=== PATIENT | male | born 1935 | race Caucasian/White ===

== ENCOUNTER 2022-02-25 07:55 | Inpatient (IN) ==
[2022-02-25] MEDS ORDERED: methylPREDNISolone SOD SUCC 125 MG/2 ML VIAL IV ONE (08:15)
[2022-02-25] MEDS ORDERED: 0.9 % SODIUM CHLORIDE 500 ML IV ONE (08:15)
--- NOTE | 2022-02-25 08:15 | Emergency Department Note ---
SOB HPI General Chief Complaint: Shortness of Breath/Dyspnea Stated Complaint: Coughing Blood, Difficulty Breathing Time Seen by Provider: 02/25/22 08:04 Source: patient Mode of arrival: ambulatory Limitations: no limitations and other (Hard of hearing) History of Present Illness HPI Narrative: Narrative: 86-year-old male, ex-smoker quit more than 10 years ago, with past medical history of COPD, hypertension, coronary artery disease, atrial fibrillation on Coumadin and as below presents with cough shortness of breath and wheezes for 2 to 3 days associated with right pleuritic chest pain. No headache dizziness abdominal pain nausea vomiting diarrhea fever or chills. Patient did receive day his COVID booster shot on February 21, 2022. No exposure to COVID. EKG in the ER shows irregular rhythm at 77 bpm consistent with A. fib. Normal axis. No ST changes. Related Data Home Medications Medication Instructions Recorded Confirmed magnesium oxide 500 mg capsule 500 mg PO DAILY 12/27/15 02/25/22 multivitamin-ferrous 1 each PO DAILY 12/27/15 02/25/22 fumarate-folic acid 18 mg-400 mcg tablet vitamin E 670 mg (1,000 unit) 1,000 unit PO DAILY 12/27/15 02/25/22 capsule omega-3 fatty acids-vitamin E 1,000 cap PO BID 11/30/20 02/25/22 1,000 mg capsule potassium chloride 10 mEq 10 meq PO BID 03/14/21 02/25/22 tablet,extended release (Klor-Con) ascorbate calcium (vitamin C) 500 500 mg PO QAM 02/25/22 02/25/22 mg capsule cholecalciferol (vitamin D3) 100 100 mcg PO QAM 02/25/22 02/25/22 mcg (4,000 unit) capsule lactobacillus combination no.8 3 3 cell PO QHS 02/25/22 02/25/22 billion cell capsule nifedipine 60 mg tablet,extended 120 mg PO QHS 02/25/22 02/25/22 release 24 hr vitamin B complex 1 tab PO QHS 02/25/22 02/25/22 warfarin 5 mg tablet See Rx Instructions .Route .COMPLEX 02/25/22 02/25/22 Previous Rx's Medication Instructions Recorded warfarin 3 mg tablet See Rx Instructions .Route 07/28/21 .COMPLEX #330 tabs albuterol sulfate 90 mcg/actuation 2 puff inhalation QID #18 grams 09/18/21 aerosol inhaler (ProAir HFA) spironolactone 25 mg tablet 25 mg PO DAILY #90 tabs 11/21/21 atorvastatin 10 mg tablet 10 mg PO QDAY #90 tabs 12/04/21 hydrochlorothiazide 25 mg tablet 25 mg PO DAILY #90 tabs 01/29/22 levothyroxine 125 mcg tablet 125 mcg PO DAILY #90 tabs 01/29/22 losartan 100 mg tablet 100 mg PO QDAY #90 tabs 01/29/22 Allergies Allergy/AdvReac Type Severity Reaction Status Date / Time Penicillins Allergy Difficulty Verified 02/04/22 15:46 Breathing venom-honey bee Allergy Anaphylaxis Verified 02/04/22 15:46 [bee venom (honey bee)] Review of Systems ROS ROS Narrative: Narrative: All systems ED: reviewed and negative except as stated. Constitutional: Reports as per [facility] Narrative Patient History Narrative: Narrative: Medical/Surgical/Family History All Active Problems (Updated 02/25/22 @ 12:26 by Jake Hutson MD) CHF (congestive heart failure) (Acute) Essential (primary) hypertension (Acute) Food impaction of esophagus (Acute) Acute exacerbation of chronic obstructive pulmonary disease (Acute) Pneumonia (Acute) Urinary tract infection (Acute) Hypoxia (Acute) Hyperlipidemia (Chronic) Hypothyroidism (Chronic) Gastric polyp (Acute) Hypertension (Chronic) Atrial fibrillation (Chronic) Acute bronchitis (Acute) Medicare annual wellness visit, subsequent (Acute) Spasm of muscle of lower back (Acute) Ear lesion (Acute) History of cataract extraction (Chronic ~12/2011) History of cholecystectomy (Chronic) History of kidney surgery (Chronic) Hx of nasal polypectomy (Chronic) History of heart artery stent (Chronic) Hx of adenomatous colonic polyps (Chronic) Arthritis (Chronic) Tinea cruris (Chronic) GERD (gastroesophageal reflux disease) (Chronic) Dysphagia, unspecified (Chronic) Neoplasm of skin (Chronic) CAD (coronary artery disease) (Chronic) Chronic atrial fibrillation (Chronic) Mitral regurgitation (Chronic) Tricuspid regurgitation (Chronic) Anticoagulation therapy not indicated (Chronic) Lateral epicondylitis, left elbow (Chronic) Medical History (Updated 02/25/22 @ 12:26 by Jake Hutson MD) Anticoagulation therapy not indicated Arthritis Atrial fibrillation CAD (coronary artery disease) Chronic atrial fibrillation Dysphagia, unspecified GERD (gastroesophageal reflux disease) Hx of adenomatous colonic polyps Hyperlipidemia Hypertension Hypothyroidism Lateral epicondylitis, left elbow Mitral regurgitation Neoplasm of skin Tinea cruris Tricuspid regurgitation Surgical History History of cataract extraction (~12/2011) right eye History of cholecystectomy History of heart artery stent History of kidney surgery History of surgery Lesion removal LT forearm Dr. Rodney 08/2019 Hx of nasal polypectomy Family History Brother , Age 72 Cardiac Social History Smoking Status: Never smoker Alcohol Intake Frequency: 0-2 drinks per day Substance Use: does not use Exam Narrative Narrative: Narrative: General Limitations: no limitations and other (Hard of hearing) General appearance: Present alert and in no apparent distress Head Head: Present atraumatic and normocephalic Eye Eye: Present normal appearance Chest Chest: Present tenderness (Right lower chest) Respiratory Respiratory: Present wheezes (Bilaterally); Absent accessory muscle use Cardiovascular Cardiovascular: Present irregular rhythm Adbominal Abdominal: Present soft and normal bowel sounds; Absent tenderness or o rganomegaly Extremities Extremities: Absent pedal edema, cyanosis or clubbing Neurological Neurological: Present alert and oriented X3 Course Course Course Narrative: CBC, CMP, troponin, CRP, lactic acid, PT/INR, BNP, UA, portable chest x-ray were ordered. DuoNeb, Solu-Medrol 125 mg IV, normal saline 500 mL IV were given patient has a high WBC count 11.5 with left shift, CRP high 13.30, UA is consistent with high leukocyte esterase and WBC count of 12, chest x-ray shows right lower lung pneumonia. Patient is still hypoxic after the treatment. Patient will be admitted to [facility] Vital Signs Vital signs: Vital Signs Temperature 98.6 F 02/25/22 07:58 Pulse Rate 81 02/25/22 07:58 Respiratory Rate 20 02/25/22 07:58 Blood Pressure 113/56 02/25/22 07:58 Pulse Oximetry (%) 90 02/25/22 07:58 Oxygen Delivery Method 02/25/22 07:58 Temperature 98.2 F 02/25/22 15:16 Pulse Rate 66 02/25/22 14:33 Respiratory Rate 26 H 02/25/22 15:16 Blood Pressure 108/57 02/25/22 15:16 Pulse Oximetry (%) 93 02/25/22 15:16 Oxygen Delivery Method 02/25/22 15:16 Oxygen Flow Rate (L/min) 3 02/25/22 15:16 MDM MDM Narrative Medical decision making narrative: Narrative: Lab Data Result diagrams: 02/25/22 08:29 02/25/22 08:29 Labs: Lab Results 02/25/22 02/25/22 02/25/22 Range/Units 08:28 08:28 08:28 WBC (4.5-11.0) K/mcL RBC (4.63-6.08) M/mcL Hgb (13.7-17.5) g/dL Hct (40.1-51.0) % MCV (80.0-100.0) fL MCH (26.0-34.0) pg MCHC (31.0-36.0) g/dL RDW (11.5-14.5) % Plt Count (140-440) K/mcL MPV (8.8-12.5) fL Immature Gran % (Auto) (0.0-0.5) % Neut % (Auto) (38.0-78.0) % Lymph % (Auto) (15.5-49.0) % [place] % (Auto) (1.0-12.0) % Eos % (Auto) (0.0-7.0) % Baso % (Auto) (0.0-2.0) % Lymph # (Auto) (1.50-4.80) K/mcL [place] # (Auto) (0.10-0.90) K/mcL Eos # (Auto) (0.00-0.70) K/mcL Baso # (Auto) (0.00-0.30) K/mcL Immature Gran # (0.00-0.05) K/mcl Absolute Neutrophils (1.80-8.00) K/mcL PT (11.9-14.5) sec INR (0.9-1.1) VBG Lactic Acid 0.9 (0.5-2.0) mmol/L Sodium (133-145) mmol/L Potassium (3.3-5.1) mmol/L Chloride (96-108) mmol/L Carbon Dioxide (22-30) mmol/L Anion Gap (8.0-16.0) BUN (8-23) mg/dL Creatinine (0.7-1.2) mg/dL GFR Calculation Glucose (70-105) mg/dL Calcium (8.6-10.4) mg/dL Total Bilirubin (0.1-1.0) mg/dL AST (<40) U/L ALT (<40) U/L Alkaline Phosphatase (39-117) U/L C-Reactive Protein (0.03-0.80) mg/dL Total Protein (5.9-8.4) gm/dL Albumin (3.2-5.2) gm/dL Globulin (2.2-3.7) gm/dL Albumin/Globulin Ratio (1.0-2.3) Procalcitonin 0.11 H (<0.10) ng/mL Urine Color Urine Appearance (Clear) Urine pH (5.0-9.0) Ur Specific [place] (1.000-1.035) Urine Protein (Negative) mg/dL Urine Glucose (UA) (Negative) mg/dL Urine Ketones (Negative) mg/dL Urine Occult Blood (Negative) mg/dL Urine Nitrate (Negative) Urine Bilirubin (Negative) mg/dL Urine Urobilinogen mg/dL Ur Leukocyte Esterase (Negative) /uL Urine RBC (0-3) /hpf Urine WBC (0-4) /hpf Ur Squamous Epith Cells (0-4) /hpf Ur Transition Epith Cell (0-2) /hpf Urine Bacteria (0) /hpf Urine Mucus (None) /hpf Ur Culture Indicated? POC Troponin I < 0.02 (0.00-0.08) 02/25/22 02/25/22 02/25/22 Range/Units 08:29 08:29 08:29 WBC 11.5 H (4.5-11.0) K/mcL RBC 3.90 L (4.63-6.08) M/mcL Hgb 11.9 L (13.7-17.5) g/dL Hct 35.7 L (40.1-51.0) % MCV 91.5 (80.0-100.0) fL MCH 30.5 (26.0-34.0) pg MCHC 33.3 (31.0-36.0) g/dL RDW 12.7 (11.5-14.5) % Plt Count 108 L (140-440) K/mcL MPV 9.9 (8.8-12.5) fL Immature Gran % (Auto) 0.3 (0.0-0.5) % Neut % (Auto) 71.1 (38.0-78.0) % Lymph % (Auto) 19.5 (15.5-49.0) % [place] % (Auto) 8.5 (1.0-12.0) % Eos % (Auto) 0.4 (0.0-7.0) % Baso % (Auto) 0.2 (0.0-2.0) % Lymph # (Auto) 2.24 (1.50-4.80) K/mcL [place] # (Auto) 0.98 H (0.10-0.90) K/mcL Eos # (Auto) 0.05 (0.00-0.70) K/mcL Baso # (Auto) 0.02 (0.00-0.30) K/mcL Immature Gran # 0.04 (0.00-0.05) K/mcl Absolute Neutrophils 8.18 H (1.80-8.00) K/mcL PT 23.6 H (11.9-14.5) sec INR 2.0 H (0.9-1.1) VBG Lactic Acid (0.5-2.0) mmol/L Sodium 136 (133-145) mmol/L Potassium 3.7 (3.3-5.1) mmol/L Chloride 99 (96-108) mmol/L Carbon Dioxide 28 (22-30) mmol/L Anion Gap 9.0 (8.0-16.0) BUN 18 (8-23) mg/dL Creatinine 0.9 (0.7-1.2) mg/dL GFR Calculation 76 Glucose 156 H (70-105) mg/dL Calcium 8.5 L (8.6-10.4) mg/dL Total Bilirubin 0.8 (0.1-1.0) mg/dL AST 14 (<40) U/L ALT 8 (<40) U/L Alkaline Phosphatase 63 (39-117) U/L C-Reactive Protein 13.30 H (0.03-0.80) mg/dL Total Protein 6.5 (5.9-8.4) gm/dL Albumin 3.6 (3.2-5.2) gm/dL Globulin 2.9 (2.2-3.7) gm/dL Albumin/Globulin Ratio 1.2 (1.0-2.3) Procalcitonin (<0.10) ng/mL Urine Color Urine Appearance (Clear) Urine pH (5.0-9.0) Ur Specific [place] (1.000-1.035) Urine Protein (Negative) mg/dL Urine Glucose (UA) (Negative) mg/dL Urine Ketones (Negative) mg/dL Urine Occult Blood (Negative) mg/dL Urine Nitrate (Negative) Urine Bilirubin (Negative) mg/dL Urine Urobilinogen mg/dL Ur Leukocyte Esterase (Negative) /uL Urine RBC (0-3) /hpf Urine WBC (0-4) /hpf Ur Squamous Epith Cells (0-4) /hpf Ur Transition Epith Cell (0-2) /hpf Urine Bacteria (0) /hpf Urine Mucus (None) /hpf Ur Culture Indicated? POC Troponin I (0.00-0.08) 02/25/22 02/25/22 Range/Units 08:52 13:32 WBC (4.5-11.0) K/mcL RBC (4.63-6.08) M/mcL Hgb (13.7-17.5) g/dL Hct (40.1-51.0) % MCV (80.0-100.0) fL MCH (26.0-34.0) pg MCHC (31.0-36.0) g/dL RDW (11.5-14.5) % Plt Count (140-440) K/mcL MPV (8.8-12.5) fL Immature Gran % (Auto) (0.0-0.5) % Neut % (Auto) (38.0-78.0) % Lymph % (Auto) (15.5-49.0) % [place] % (Auto) (1.0-12.0) % Eos % (Auto) (0.0-7.0) % Baso % (Auto) (0.0-2.0) % Lymph # (Auto) (1.50-4.80) K/mcL [place] # (Auto) (0.10-0.90) K/mcL Eos # (Auto) (0.00-0.70) K/mcL Baso # (Auto) (0.00-0.30) K/mcL Immature Gran # (0.00-0.05) K/mcl Absolute Neutrophils (1.80-8.00) K/mcL PT 24.8 H (11.9-14.5) sec INR 2.2 H (0.9-1.1) VBG Lactic Acid (0.5-2.0) mmol/L Sodium (133-145) mmol/L Potassium (3.3-5.1) mmol/L Chloride (96-108) mmol/L Carbon Dioxide (22-30) mmol/L Anion Gap (8.0-16.0) BUN (8-23) mg/dL Creatinine (0.7-1.2) mg/dL GFR Calculation Glucose (70-105) mg/dL Calcium (8.6-10.4) mg/dL Total Bilirubin (0.1-1.0) mg/dL AST (<40) U/L ALT (<40) U/L Alkaline Phosphatase (39-117) U/L C-Reactive Protein (0.03-0.80) mg/dL Total Protein (5.9-8.4) gm/dL Albumin (3.2-5.2) gm/dL Globulin (2.2-3.7) gm/dL Albumin/Globulin Ratio (1.0-2.3) Procalcitonin (<0.10) ng/mL Urine Color [place] Urine Appearance Cloudy A (Clear) Urine pH 5.0 (5.0-9.0) Ur Specific [place] 1.020 (1.000-1.035) Urine Protein 30 A (Negative) mg/dL Urine Glucose (UA) Negative (Negative) mg/dL Urine Ketones Negative (Negative) mg/dL Urine Occult Blood Negative (Negative) mg/dL Urine Nitrate Negative (Negative) Urine Bilirubin Negative (Negative) mg/dL Urine Urobilinogen Negative mg/dL Ur Leukocyte Esterase 500 A (Negative) /uL Urine RBC 2 (0-3) /hpf Urine WBC 12 H (0-4) /hpf Ur Squamous Epith Cells 5 H (0-4) /hpf Ur Transition Epith Cell < 1 (0-2) /hpf Urine Bacteria Few A (0) /hpf Urine Mucus Many A (None) /hpf Ur Culture Indicated? No POC Troponin I (0.00-0.08) ED POC Tests ED POC Tests: RHIANNON - SARS Antigen Negative Discharge Plan Patient/Caregiver Discharge Instructions Pt seen by JACKHAMMER OPERATOR/PA only: No Clinical Impression: Acute exacerbation of chronic obstructive pulmonary disease, Pneumonia, Urinary tract infection, Hypoxia Patient Disposition: Xfer As Inpt ([facility]) Condition: Fair Discharge Date/Time: 02/25/22 13:35
[2022-02-25] MEDS: IPRATROPIUM/ALBUTEROL 3 ML AMPUL.NEB NEB SCH ×5 (08:33→23:01)
--- NOTE | 2022-02-25 09:08 | XRay Report ---
INDICATION: dyspnea TECHNIQUE: AP portable semiupright chest x-ray COMPARISON: Previous examination dated 02/04/2022 FINDINGS: Lungs:Left lung is negative. No focal parenchymal infiltrate Right basilar parenchymal infiltrate consistent with pneumonia. Follow-up radiographs recommended. Heart, vascular:There is generalized cardiomegaly, unchanged. No evidence for congestive heart failure Mediastinum, desiree:No mediastinal widening. No hilar mass Pleura:Minimal blunting of the right costophrenic angle may represent a small pleural effusion Skeletal:Negative. IMPRESSION: 1. Right lung infiltrates consistent with pneumonia 2. Cardiomegaly, unchanged Interpreted and Authenticated by: Jayant Chopra 02/25/22
[2022-02-25 09:11] LABS: Basophils # (Auto) 0.02 K/mcL (0.00-0.30); Basophils % (Auto) 0.2 % (0.0-2.0); Eosinophils # (Auto) 0.05 K/mcL (0.00-0.70); Eosinophils % (Auto) 0.4 % (0.0-7.0); Hematocrit 35.7 % (40.1-51.0); Hemoglobin 11.9 g/dL (13.7-17.5); Lymphocytes # (Auto) 2.24 K/mcL (1.50-4.80); Lymphocytes % (Auto) 19.5 % (15.5-49.0); Mean Cell Volume 91.5 fL (80.0-100.0); Mean Corpuscular HGB Conc 33.3 g/dL (31.0-36.0); Mean Platelet Volume 9.9 fL (8.8-12.5); Monocytes # (Auto) 0.98 K/mcL (0.10-0.90); Monocytes % (Auto) 8.5 % (1.0-12.0); Neutrophils % (Auto) 71.1 % (38.0-78.0); Platelet Count 108 K/mcL (140-440); Red Cell Distribution Width 12.7 % (11.5-14.5); WBC 11.5 K/mcL (4.5-11.0)
[2022-02-25 09:22] LABS: ALT/SGPT 8 U/L (<40); AST/SGOT 14 U/L (<40); Albumin 3.6 gm/dL (3.2-5.2); Albumin/Globulin Ratio 1.2 (1.0-2.3); Alkaline Phosphatase 63 U/L (39-117); Bilirubin,Total 0.8 mg/dL (0.1-1.0); Blood Urea Nitrogen 18 mg/dL (8-23); Calcium 8.5 mg/dL (8.6-10.4); Carbon Dioxide 28 mmol/L (22-30); Chloride 99 mmol/L (96-108); Globulin 2.9 gm/dL (2.2-3.7); Glomerular Filtration Rate 76; Glucose 156 mg/dL (70-105)
[2022-02-25 09:26] LABS: Prothrombin Time 23.6 sec (11.9-14.5)
[2022-02-25 09:41] LABS: Appearance,Urine CLOUDY (Clear); Bacteria,Urine FEW /hpf (0); Bilirubin,Urine Negative (Negative); Color,Urine AMBER; Culture Indicated,Urine No; Glucose,Urine (UA) Negative (Negative); Ketones,Urine Negative (Negative); Leukocyte Esterase,Urine 500 /uL (Negative); Mucus,Urine MANY /hpf; Nitrate,Urine Negative (Negative); Protein,Urine 30 mg/dL (Negative); Urine Blood Negative (Negative); Urine RBC 2 /hpf (0-3); Urine Squamous Epithelial Cell 5 /hpf (0-4); Urine Transitional Epi Cells < 1 /hpf (0-2); Urine WBC 12 /hpf (0-4); Urobilinogen,Urine Negative
[2022-02-25] MEDS ORDERED: LEVOFLOXACIN 750 MG/150 ML BAG IV ONE (10:00)
[2022-02-25] MEDS ORDERED: IPRATROPIUM/ALBUTEROL 3 ML AMPUL.NEB NEB ONE (11:17)
[2022-02-25] MEDS ORDERED: WARFARIN 3 MG TABLET PO SCH (12:15)
[2022-02-25] MEDS ORDERED: WARFARIN 5 MG TABLET PO SCH (12:15)
--- NOTE | 2022-02-25 12:31 | Internal Med History&Physical ---
HPI History of Present Illness Patient information: Note initiated : 02/25/22 at 12:21 pm Service Date, if different from initiated Date: [] Patient: Doe Soler a 86 y/o M admitted on for Coughing Blood, Difficulty Breathing. Chief Complaint: [coughing up blood] Chief complaint: coughing up blood History of present illness: Mr. Soler is a 86 year old M history of COPD, atrial fibrillation's on Coumadin, congestive heart failure, hypertensions, hyperlipidemia, hypothyroidism, presenting with shortness of breath and coughing up blood. He is complaining of shortness of breath over undefined amount of time as well as coughing up blood this morning. He is also commenting of productive cough with foamy sputum. He is coming of respiratory wheezings. He is coming of subjective fever and chills. He was having right-sided chest pain when coughing as well. Vital signs showing oxygen desaturating in the 80s on room air. Labs significant for leukocytosis with WBC 11.5. Lactic acid 0.9. INR was 2.0. Coni COVID screening negative. UA suggesting the presence of urinary tract infections. Chest x-ray showing right lung infiltrates consistent with pneumonia as well as cardiomegaly unchanged. Constitutional Constitutional: Present chills and fever(s); Absent excessive sweating, fatigue or weakness EENT Eyes: Absent blurry vision, change in vision, loss of vision or other visual disturbances Ears: Absent decreased hearing or tinnitus Nose, mouth and throat: Absent abnormal hearing, dry mouth, headache(s), nasal congestion or sore throat Cardiovascular Cardiovascular: Absent chest pain, chest pain at rest, edema, irregular heart rhythm or palpatations Respiratory Respiratory: Present as per HPI, cough, dyspnea, hemoptysis and wheezing Gastrointestinal Gastrointestinal: Absent abdominal pain, constipation, diarrhea, nausea or vomiting Musculoskeletal Musculoskeletal: Absent back pain, deformity, limited range of motion, muscle cramps, muscle weakness or numbness Additional comments: chest pain Integumentary Integumentary: Absent lesions, rash or wounds Neurological Neurological: Absent focal weakness, headache(s) or numbness Psychiatric Psychiatric: Absent anxiety, depression or hallucinations PFSH PFSH All Active Problems (Updated 02/25/22 @ 12:26 by Jake Hutson MD) CHF (congestive heart failure) (Acute) Essential (primary) hypertension (Acute) Food impaction of esophagus (Acute) Acute exacerbation of chronic obstructive pulmonary disease (Acute) Pneumonia (Acute) Urinary tract infection (Acute) Hypoxia (Acute) Hyperlipidemia (Chronic) Hypothyroidism (Chronic) Gastric polyp (Acute) Hypertension (Chronic) Atrial fibrillation (Chronic) Acute bronchitis (Acute) Medicare annual wellness visit, subsequent (Acute) Spasm of muscle of lower back (Acute) Ear lesion (Acute) History of cataract extraction (Chronic ~12/2011) History of cholecystectomy (Chronic) History of kidney surgery (Chronic) Hx of nasal polypectomy (Chronic) History of heart artery stent (Chronic) Hx of adenomatous colonic polyps (Chronic) Arthritis (Chronic) Tinea cruris (Chronic) GERD (gastroesophageal reflux disease) (Chronic) Dysphagia, unspecified (Chronic) Neoplasm of skin (Chronic) CAD (coronary artery disease) (Chronic) Chronic atrial fibrillation (Chronic) Mitral regurgitation (Chronic) Tricuspid regurgitation (Chronic) Anticoagulation therapy not indicated (Chronic) Lateral epicondylitis, left elbow (Chronic) Medical History (Updated 02/25/22 @ 12:26 by Jake Hutson MD) Anticoagulation therapy not indicated Arthritis Atrial fibrillation CAD (coronary artery disease) Chronic atrial fibrillation Dysphagia, unspecified GERD (gastroesophageal reflux disease) Hx of adenomatous colonic polyps Hyperlipidemia Hypertension Hypothyroidism Lateral epicondylitis, left elbow Mitral regurgitation Neoplasm of skin Tinea cruris Tricuspid regurgitation Surgical History History of cataract extraction (~12/2011) right eye History of cholecystectomy History of heart artery stent History of kidney surgery History of surgery Lesion removal LT forearm Dr. Rodney 08/2019 Hx of nasal polypectomy Family History Brother , Age 72 Cardiac Social History household members: spouse marital status: occupational status: retired occupation: [employer] smoking status: Never smoker alcohol intake frequency: 0-2 drinks per day substance use type: does not use MEDS/ALLERGIES Home Medications and Allergies Home Medications Medication Instructions Recorded Confirmed Type magnesium oxide 500 mg capsule 500 mg PO DAILY 12/27/15 02/25/22 History multivitamin-ferrous 1 each PO DAILY 12/27/15 02/25/22 History fumarate-folic acid 18 mg-400 mcg tablet vitamin E 670 mg (1,000 unit) 1,000 unit PO DAILY 12/27/15 02/25/22 History capsule omega-3 fatty acids-vitamin E 1,000 cap PO BID 11/30/20 02/25/22 History 1,000 mg capsule potassium chloride 10 mEq 10 meq PO BID 03/14/21 02/25/22 History tablet,extended release (Klor-Con) warfarin 3 mg tablet See Rx Instructions .Route 07/28/21 02/25/22 Rx .COMPLEX #330 tabs albuterol sulfate 90 mcg/actuation 2 puff inhalation QID #18 grams 09/18/21 02/25/22 Rx aerosol inhaler (ProAir HFA) spironolactone 25 mg tablet 25 mg PO DAILY #90 tabs 11/21/21 02/25/22 Rx atorvastatin 10 mg tablet 10 mg PO QDAY #90 tabs 12/04/21 02/25/22 Rx hydrochlorothiazide 25 mg tablet 25 mg PO DAILY #90 tabs 01/29/22 02/25/22 Rx levothyroxine 125 mcg tablet 125 mcg PO DAILY #90 tabs 01/29/22 02/25/22 Rx losartan 100 mg tablet 100 mg PO QDAY #90 tabs 01/29/22 02/25/22 Rx ascorbate calcium (vitamin C) 500 500 mg PO QAM 02/25/22 02/25/22 History mg capsule cholecalciferol (vitamin D3) 100 100 mcg PO QAM 02/25/22 02/25/22 History mcg (4,000 unit) capsule lactobacillus combination no.8 3 3 cell PO QHS 02/25/22 02/25/22 History billion cell capsule nifedipine 60 mg tablet,extended 120 mg PO QHS 02/25/22 02/25/22 History release 24 hr vitamin B complex 1 tab PO QHS 02/25/22 02/25/22 History warfarin 5 mg tablet See Rx Instructions .Route .COMPLEX 02/25/22 02/25/22 History Allergies Allergy/AdvReac Type Severity Reaction Status Date / Time Penicillins Allergy Difficulty Verified 02/04/22 15:46 Breathing venom-honey bee Allergy Anaphylaxis Verified 02/04/22 15:46 [bee venom (honey bee)] EXAM Constitutional Vitals: Temp Pulse Resp BP Pulse Ox O2 Del Method O2 Flow Rate 37.0 C 72 23 H 93/56 96 3 02/25/22 07:58 02/25/22 12:07 02/25/22 12:07 02/25/22 12:01 02/25/22 12:07 02/25/22 08:13 02/25/22 08:13 General appearance: cooperative and no acute distress Head Head exam: Present atraumatic and normocephalic Eye Eye exam: Present EOMI and PERRL ENT ENT exam: Present mucous membranes moist, normal exam and normal external ear exam Additional comments: Nasal cannula in place Neck Neck exam: Present normal inspection; Absent lymphadenopathy, tenderness or thyromegaly Respiratory Respiratory exam: Present rhonchi and wheezes; Absent accessory muscle use or respiratory distress Cardiovascular Cardiovascular exam: Present irregular rhythm; Absent JVD GI/Abdominal GI/Abdominal exam: Present normal bowel sounds and soft; Absent organomegaly or tenderness Rectal Rectal exam: Present deferred Extremities Exam Extremities exam: Present full ROM, normal capillary refill and normal inspection; Absent tenderness Neurological Exam Neurological exam: Present alert, CN II-XII intact and oriented X3; Absent motor sensory deficit Psychiatric Psychiatric exam: Present normal affect and normal mood; Absent anxious or depressed Skin Skin exam: Present dry and intact DATA Data Completed and Pending Labs: Labs from last 24 hours 02/25/22 02/25/22 02/25/22 08:52 08:29 08:29 WBC RBC Hgb Hct MCV MCH MCHC RDW Plt Count MPV Immature Gran % (Auto) Neut % (Auto) Lymph % (Auto) Smyth % (Auto) Eos % (Auto) Baso % (Auto) Lymph # (Auto) Smyth # (Auto) Eos # (Auto) Baso # (Auto) Immature Gran # Absolute Neutrophils PT 23.6 H INR 2.0 H VBG Lactic Acid Sodium 136 Potassium 3.7 Chloride 99 Carbon Dioxide 28 Anion Gap 9.0 BUN 18 Creatinine 0.9 GFR Calculation 76 Glucose 156 H Calcium 8.5 L Total Bilirubin 0.8 AST 14 ALT 8 Alkaline Phosphatase 63 C-Reactive Protein 13.30 H B-Natriuretic Peptide Total Protein 6.5 Albumin 3.6 Globulin 2.9 Albumin/Globulin Ratio 1.2 Urine Color [place] Urine Appearance Cloudy A Urine pH 5.0 Ur Specific Heath 1.020 Urine Protein 30 A Urine Glucose (UA) Negative Urine Ketones Negative Urine Occult Blood Negative Urine Nitrate Negative Urine Bilirubin Negative Urine Urobilinogen Negative Ur Leukocyte Esterase 500 A Urine RBC 2 Urine WBC 12 H Ur Squamous Epith Cells 5 H Ur Transition Epith Cell < 1 Urine Bacteria Few A Urine Mucus Many A Ur Culture Indicated? No POC Troponin I 02/25/22 02/25/22 02/25/22 08:29 08:28 08:28 WBC 11.5 H RBC 3.90 L Hgb 11.9 L Hct 35.7 L MCV 91.5 MCH 30.5 MCHC 33.3 RDW 12.7 Plt Count 108 L MPV 9.9 Immature Gran % (Auto) 0.3 Neut % (Auto) 71.1 Lymph % (Auto) 19.5 Smyth % (Auto) 8.5 Eos % (Auto) 0.4 Baso % (Auto) 0.2 Lymph # (Auto) 2.24 Smyth # (Auto) 0.98 H Eos # (Auto) 0.05 Baso # (Auto) 0.02 Immature Gran # 0.04 Absolute Neutrophils 8.18 H PT INR VBG Lactic Acid Sodium Potassium Chloride Carbon Dioxide Anion Gap BUN Creatinine GFR Calculation Glucose Calcium Total Bilirubin AST ALT Alkaline Phosphatase C-Reactive Protein B-Natriuretic Peptide Pending Total Protein Albumin Globulin Albumin/Globulin Ratio Urine Color Urine Appearance Urine pH Ur Specific Heath Urine Protein Urine Glucose (UA) Urine Ketones Urine Occult Blood Urine Nitrate Urine Bilirubin Urine Urobilinogen Ur Leukocyte Esterase Urine RBC Urine WBC Ur Squamous Epith Cells Ur Transition Epith Cell Urine Bacteria Urine Mucus Ur Culture Indicated? POC Troponin I < 0.02 02/25/22 08:28 WBC RBC Hgb Hct MCV MCH MCHC RDW Plt Count MPV Immature Gran % (Auto) Neut % (Auto) Lymph % (Auto) Smyth % (Auto) Eos % (Auto) Baso % (Auto) Lymph # (Auto) S[place]th # (Auto) Eos # (Auto) Baso # (Auto) Immature Gran # Absolute Neutrophils PT INR VBG Lactic Acid 0.9 Sodium Potassium Chloride Carbon Dioxide Anion Gap BUN Creatinine GFR Calculation Glucose Calcium Total Bilirubin AST ALT Alkaline Phosphatase C-Reactive Protein B-Natriuretic Peptide Total Protein Albumin Globulin Albumin/Globulin Ratio Urine Color Urine Appearance Urine pH Ur Specific Heath Urine Protein Urine Glucose (UA) Urine Ketones Urine Occult Blood Urine Nitrate Urine Bilirubin Urine Urobilinogen Ur Leukocyte Esterase Urine RBC Urine WBC Ur Squamous Epith Cells Ur Transition Epith Cell Urine Bacteria Urine Mucus Ur Culture Indicated? POC Troponin I A/P Assessment and plan (1) Pneumonia: Status: Acute (2) Urinary tract infection: Status: Acute (3) Acute exacerbation of chronic obstructive pulmonary disease: Status: Acute (4) Hyperlipidemia: Status: Chronic Qualifiers: Hyperlipidemia type: mixed hyperlipidemia Qualified Code(s): E78.2 - Mixed hyperlipidemia (5) Hypothyroidism: Status: Chronic Qualifiers: Hypothyroidism type: acquired Qualified Code(s): E03.9 - Hypothyroidism, unspecified (6) Atrial fibrillation: Status: Chronic Qualifiers: Atrial fibrillation type: longstanding persistent Qualified Code(s): I48.11 - Longstanding persistent atrial fibrillation (7) Essential (primary) hypertension: Status: Acute (8) CHF (congestive heart failure): Status: Acute Narrative A/P Narrative: Assessment and Plans: 1. Pneumonia: Inpatient med surg Serial lactic acid Procalcitonin Blood culture [place] CoVID screening cbc w/ auto diff in the morning to trend WBC Supplemental oxygen therapy titrate to achieve spo2>=88% given COPD-er Levaquin (Penicillin allergy) 2. COPD with exacerbation: Supplemental oxygen therapy titrate to achieve spo2>=88% given COPD-er DuoNEB NEB scheduled and PRN wheezing Prednisone Levaquin (Penicillin allergy) 3. UTI: Serial lactic acid Procalcitonin Blood culture Urine culture cbc w/ auto diff in the morning to trend WBC Levaquin (Penicillin allergy) 4. h/o CHF and essential HTN: HCTZ Aldactone Losartan Nifedipine 5. Atrial fibrillation: Rate controlled Daily INR for Coumadin dosing 6. Hyperlipidemia: Continue statin therapy 7. Hypothyroidism: Continue thyroid replacement therapy GI ppx: not currently indicated DVT ppx: Coumadin Code statin: Full Prognosis: guarded Disposition: inpatient med surg Time Spent With Patient Time: Total time spent is greater than 50% in coordination of care (as documented) at patient's floor/unit and/or counseling patient: Total time spent with greater than 50% in coordination of care (as documented) at patient's floor/unit and/or counseling patient:: Greater than 70 minutes
[2022-02-25] MEDS ORDERED: ALBUTEROL SULFATE 200 PUFF INHALER INH SCH (13:00)
[2022-02-25] MEDS ORDERED: ACETAMINOPHEN 325 MG TABLET PO PRN (13:45)
[2022-02-25] MEDS ORDERED: ONDANSETRON 4 MG/2 ML VIAL IV PRN (13:45)
[2022-02-25] MEDS ORDERED: LEVOFLOXACIN 750 MG/150 ML BAG IV SCH (13:45)
[2022-02-25] MEDS ORDERED: AZITHROMYCIN 500 MG in DEXTROSE 5% IN WATER 250 ML IV SCH (13:45)
[2022-02-25] MEDS ORDERED: IPRATROPIUM/ALBUTEROL 3 ML AMPUL.NEB NEB PRN (13:45)
[2022-02-25] MEDS ORDERED: KETOROLAC 15 MG/ML VIAL IV PRN (13:50)
[2022-02-25] MEDS ORDERED: WARFARIN 2 MG TABLET PO ONE (14:00)
[2022-02-25 14:17] LABS: INR 2.2 (0.9-1.1); Prothrombin Time 24.8 sec (11.9-14.5)
[2022-02-25] MEDS: 0.9 % SODIUM CHLORIDE 10 ML SYRINGE IV SCH ×2 (14:46→22:06)
[2022-02-25] MEDS: predniSONE 20 MG TABLET PO SCH (14:46)
[2022-02-25] MEDS: POTASSIUM CHLORIDE 10 MEQ TABLET PO SCH (17:54)
--- NOTE | 2022-02-25 20:59 | EKG ---
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
[2022-02-25] MEDS ORDERED: traZODone HCL 50 MG TABLET PO PRN (21:00)
[2022-02-25] MEDS: LACTOBACILLUS 1 CAPSULE PO SCH (22:06)
[2022-02-25] MEDS: FISH OIL 1,000 MG CAPSULE PO SCH (22:06)
[2022-02-25] MEDS: NIFEdipine 30 MG TAB.XL.24H PO SCH (22:06)
[2022-02-25] MEDS: DOCUSATE SODIUM 100 MG CAPSULE PO SCH (22:06)
[2022-02-25] MEDS: SENNOSIDES 1 TABLET PO SCH (22:07)
[2022-02-26] MEDS: IPRATROPIUM/ALBUTEROL 3 ML AMPUL.NEB NEB SCH ×6 (04:09→23:07)
[2022-02-26] MEDS: predniSONE 20 MG TABLET PO SCH (07:03)
[2022-02-26] MEDS: LEVOTHYROXINE 125 MCG TABLET PO SCH (07:03)
[2022-02-26] MEDS: POTASSIUM CHLORIDE 10 MEQ TABLET PO SCH ×2 (07:03→17:10)
[2022-02-26 07:05] LABS: Basophils # (Auto) 0.01 K/mcL (0.00-0.30); Basophils % (Auto) 0.1 % (0.0-2.0); Eosinophils # (Auto) 0 K/mcL (0.00-0.70); Eosinophils % (Auto) 0 % (0.0-7.0); Hematocrit 34.2 % (40.1-51.0); Hemoglobin 11.4 g/dL (13.7-17.5); Lymphocytes # (Auto) 1.08 K/mcL (1.50-4.80); Lymphocytes % (Auto) 10.1 % (15.5-49.0); Mean Cell Volume 90.5 fL (80.0-100.0); Mean Corpuscular HGB Conc 33.3 g/dL (31.0-36.0); Mean Platelet Volume 10.2 fL (8.8-12.5); Monocytes # (Auto) 0.42 K/mcL (0.10-0.90); Monocytes % (Auto) 3.9 % (1.0-12.0); Neutrophils % (Auto) 85.3 % (38.0-78.0); Platelet Count 113 K/mcL (140-440); RBC 3.78 M/mcL (4.63-6.08); Red Cell Distribution Width 12.4 % (11.5-14.5); WBC 10.7 K/mcL (4.5-11.0)
[2022-02-26 07:48] LABS: ALT/SGPT 9 U/L (<40); AST/SGOT 12 U/L (<40); Albumin 3.7 gm/dL (3.2-5.2); Albumin/Globulin Ratio 1.4 (1.0-2.3); Alkaline Phosphatase 58 U/L (39-117); Bilirubin,Total 0.3 mg/dL (0.1-1.0); Blood Urea Nitrogen 24 mg/dL (8-23); Calcium 8.6 mg/dL (8.6-10.4); Carbon Dioxide 26 mmol/L (22-30); Chloride 100 mmol/L (96-108); Globulin 2.6 gm/dL (2.2-3.7); Glomerular Filtration Rate 67; Glucose 213 mg/dL (70-105)
[2022-02-26] MEDS: VITAMIN E (DL,TOCOPHERYL ACET) 400 UNIT CAPSULE PO SCH (09:54)
[2022-02-26] MEDS: ATORVASTATIN 10 MG TABLET PO SCH (09:54)
[2022-02-26] MEDS: ASCORBIC ACID 500 MG TABLET PO SCH (09:55)
[2022-02-26] MEDS: MULTIVIT,THER IRON,CA,FA & MIN 1 TABLET PO SCH (09:55)
[2022-02-26] MEDS: VITAMIN B COMPLEX 1 CAPSULE PO SCH (09:55)
[2022-02-26] MEDS: SPIRONOLACTONE 25 MG TABLET PO SCH (09:55)
[2022-02-26] MEDS: LOSARTAN 50 MG TABLET PO SCH (09:56)
[2022-02-26] MEDS: 0.9 % SODIUM CHLORIDE 10 ML SYRINGE IV SCH ×3 (09:56→23:37)
[2022-02-26] MEDS: DOCUSATE SODIUM 100 MG CAPSULE PO SCH ×2 (09:56→21:14)
[2022-02-26] MEDS: FISH OIL 1,000 MG CAPSULE PO SCH ×2 (09:56→21:14)
[2022-02-26] MEDS: VITAMIN D3 25 MCG TABLET PO SCH (09:56)
[2022-02-26] MEDS: HYDROCHLOROTHIAZIDE 25 MG TABLET PO SCH (09:56)
[2022-02-26] MEDS: MAGNESIUM OXIDE 400 MG TABLET PO SCH (09:56)
[2022-02-26] MEDS: LEVOFLOXACIN 750 MG/150 ML BAG IV SCH (09:57)
[2022-02-26 10:05] LABS: INR 2.5 (0.9-1.1); Prothrombin Time 28.1 sec (11.9-14.5)
--- NOTE | 2022-02-26 11:36 | Internal Med Progress Note ---
SUBJECTIVE Subjective Patient information: Note initiated : 02/26/22 at 11:30 am Service Date, if different from initiated Date: [] Patient: Doe Soler a 86 y/o M admitted on 02/25/22 for Coughing Blood, Difficulty Breathing. Chief Complaint: [] Interval history: Mr. Soler is a 86 year old M history of COPD, atrial fibrillation's on Coumadi n, congestive heart failure, hypertensions, hyperlipidemia, hypothyroidism, presenting with shortness of breath and coughing up blood. He is complaining of shortness of breath over undefined amount of time as well as coughing up blood this morning. He is also commenting of productive cough with foamy sputum. He is coming of respiratory wheezings. He is coming of subjective fever and chills. He was having right-sided chest pain when coughing as well. Vital signs showing oxygen desaturating in the 80s on room air. Labs significant for leukocytosis with WBC 11.5. Lactic acid 0.9. INR was 2.0. Coni COVID screening negative. UA suggesting the presence of urinary tract infections. Chest x-ray showing right lung infiltrates consistent with pneumonia as well as cardiomegaly unchanged. 02/26: [place] negative for COVID-pneumonia. Blood cultures no growth today. INR 2.5. Afebrile overnight. Patient is currently on 1 L/min of nasal cannula oxygen's. Patient is complaining of improving degree of shortness of breath. He is coming of productive cough with clear/red sputum. He is coming of respiratory wheezing. He denies any chest pain or chest tightness. He is coming of shaking chills but denies any fever or diaphoresis. Improving energy level. Continue to wean off oxygen as tolerated. Continue IV levofloxacin while monitoring blood culture results. Continue daily INR for Coumadin dosing. Continue bronchodilators and prednisone for COPD exacerbations. Constitutional Vitals: Vital Signs Temp Pulse Resp BP Pulse Ox O2 Del Method O2 Flow Rate 36.5 C 75 20 114/65 93 1 02/26/22 07:57 02/26/22 07:57 02/26/22 07:57 02/26/22 07:57 02/26/22 07:57 02/26/22 07:57 02/26/22 07:57 Period Temp Pulse Resp BP Sys/Brandon Pulse Ox O2 Del Method O2 Flow Rate Last 24 Hr 36.4 C-36.9 C 61-97 13-27 93-119/47-65 90-98 Nasal Cannula- Room Air 1-3 Intake and Output 02/25/22 02/26/22 02/26/22 21:59 05:59 13:59 Intake Total 480 200 Output Total 300 200 Balance 180 0 Weight 86.954 kg Intake & Output: Intake & Output 02/25/22 02/26/22 02/26/22 21:59 05:59 13:59 Intake Total 480 200 Output Total 300 200 Balance 180 0 Weight 86.954 kg Intake: Oral 480 200 Output: Void Amount 300 200 Other: Meal Dinner Percent of Meal Consumed 75% Urine Appearance Clear Clear Urine Color Dark Yellow Light Maliha General appearance: average body habitus, cooperative and no acute distress Head Head exam: Present atraumatic and normal inspection Eye Eye exam: Present normal appearance ENT ENT exam: Present mucous membranes moist, normal exam and normal external ear ex am Additional comments: Nasal cannula in place Neck Neck exam: Present normal inspection Respiratory Respiratory exam: Present rhonchi and wheezes Cardiovascular Cardiovascular exam: Present irregular rhythm GI/Abdominal GI/Abdominal exam: Present normal bowel sounds Back Exam Back exam: Present normal inspection Neurological Exam Neurological exam: Present alert and oriented X3 Skin Skin exam: Present intact and warm OBJ DATA Labs CBC & Chem 7: 02/26/22 05:38 02/26/22 05:38 Labs: Abnormal Lab Results 02/26/22 02/26/22 02/26/22 05:38 05:38 05:38 WBC RBC 3.78 L Hgb 11.4 L Hct 34.2 L Plt Count 113 L Immature Gran % (Auto) 0.6 H Neut % (Auto) 85.3 H Lymph % (Auto) 10.1 L Lymph # (Auto) 1.08 L [place] # (Auto) Immature Gran # 0.06 H Absolute Neutrophils 9.15 H PT 28.1 H INR 2.5 H BUN 24 H Glucose 213 H Calcium C-Reactive Protein Procalcitonin Urine Appearance Urine Protein Ur Leukocyte Esterase Urine WBC Ur Squamous Epith Cells Urine Bacteria Urine Mucus 02/25/22 02/25/22 02/25/22 13:32 08:52 08:29 WBC RBC Hgb Hct Plt Count Immature Gran % (Auto) Neut % (Auto) Lymph % (Auto) Lymph # (Auto) [place] # (Auto) Immature Gran # Absolute Neutrophils PT 24.8 H 23.6 H INR 2.2 H 2.0 H BUN Glucose Calcium C-Reactive Protein Procalcitonin Urine Appearance Cloudy A Urine Protein 30 A Ur Leukocyte Esterase 500 A Urine WBC 12 H Ur Squamous Epith Cells 5 H Urine Bacteria Few A Urine Mucus Many A 02/25/22 02/25/22 02/25/22 08:29 08:29 08:28 WBC 11.5 H RBC 3.90 L Hgb 11.9 L Hct 35.7 L Plt Count 108 L Immature Gran % (Auto) Neut % (Auto) Lymph % (Auto) Lymph # (Auto) [place] # (Auto) 0.98 H Immature Gran # Absolute Neutrophils 8.18 H PT INR BUN Glucose 156 H Calcium 8.5 L C-Reactive Protein 13.30 H Procalcitonin 0.11 H Urine Appearance Urine Protein Ur Leukocyte Esterase Urine WBC Ur Squamous Epith Cells Urine Bacteria Urine Mucus Meds: Medications Acetaminophen (Acetaminophen 325 Mg Tablet) 650 mg PO Q6HP PRN; Protocol PRN Reason: Per Pain Protocol/Fever > 101 Albuterol/Ipratropium (Ipratropium/Albuterol 3 Ml Ampul.Neb) 3 ml NEB Q4HRT [facility] Last Admin: 02/26/22 06:48 Dose: 3 ml Albuterol/Ipratropium (Ipratropium/Albuterol 3 Ml Ampul.Neb) 3 ml NEB Q4HRT PRN PRN Reason: Wheezing Ascorbic Acid (Ascorbic Acid 500 Mg Tablet) 500 mg PO DAILY [facility] Last Admin: 02/26/22 09:55 Dose: 500 mg Atorvastatin Calcium (Atorvastatin 10 Mg Tablet) 10 mg PO DAILY [facility] Last Admin: 02/26/22 09:54 Dose: 10 mg Docusate Sodium (Docusate Sodium 100 Mg Capsule) 100 mg PO BID [facility] Last Admin: 02/26/22 09:56 Dose: 100 mg Fish Oil (Fish Oil 1,000 Mg Capsule) 1,000 mg PO BID [facility] Last Admin: 02/26/22 09:56 Dose: 1,000 mg Hydrochlorothiazide (Hydrochlorothiazide 25 Mg Tablet) 25 mg PO DAILY [facility] Last Admin: 02/26/22 09:56 Dose: 25 mg Levofloxacin (Levaquin) 750 mg in 150 mls @ 100 mls/hr IV Q24H [facility] Last Admin: 10/31/22 09:57 Dose: 100 mls/hr Iron Carb/Multivit/[place]/Folic Acid (Multivit,Ther Iron,Ca,Fa & Min 1 Tablet) 1 tab PO DAILY [facility] Last Admin: 02/26/22 09:55 Dose: 1 tab Ketorolac Tromethamine (Ketorolac 15 Mg/Ml Vial) 15 mg IV Q6HP PRN; Protocol PRN Reason: Per Pain Protocol Stop: 02/27/22 12:12 Lactobacillus Rhamnosus (Lactobacillus 1 Capsule) 1 cap PO [facility] Last Admin: 02/25/22 22:06 Dose: 1 cap Levothyroxine Sodium (Levothyroxine 125 Mcg Tablet) 125 mcg PO ACB [facility] Last Admin: 02/26/22 07:03 Dose: 125 mcg Losartan Potassium (Losartan 50 Mg Tablet) 100 mg PO DAILY [facility] Last Admin: 02/26/22 09:56 Dose: 100 mg Magnesium Oxide (Magnesium Oxide 400 Mg Tablet) 400 mg PO DAILY [facility] Last Admin: 02/26/22 09:56 Dose: 400 mg Nifedipine (Nifedipine 30 Mg Tab.Xl.24h) 120 mg PO [facility] Last Admin: 02/25/22 22:06 Dose: 120 mg Ondansetron HCl (Ondansetron 4 Mg/2 Ml Vial) 4 mg IV Q6HP PRN PRN Reason: Nausea And Vomiting Potassium Chloride (Potassium Chloride 10 Meq Tablet) 10 meq PO BIDCC [facility] Last Admin: 02/26/22 07:03 Dose: 10 meq Prednisone (Prednisone 20 Mg Tablet) 40 mg PO [facility] Last Admin: 02/26/22 07:03 Dose: 40 mg Senna (Sennosides 1 Tablet) 2 tab PO [facility] Last Admin: 02/25/22 22:07 Dose: Not Given Sodium Chloride (0.9 % Sodium Chloride 10 Ml Syringe) 10 ml IV Q8 [facility] Last Admin: 02/26/22 09:56 Dose: 10 ml Spironolactone (Spironolactone 25 Mg Tablet) 25 mg PO DAILY [facility] Last Admin: 02/26/22 09:55 Dose: 25 mg Trazodone HCl (Trazodone Hcl 50 Mg Tablet) 25 mg PO [facility] PRN PRN Reason: Insomnia Vitamin B Complex (Vitamin B Complex 1 Capsule) 1 cap PO DAILY [facility] Last Admin: 02/26/22 09:55 Dose: 1 cap Vitamin D (Vitamin D3 25 Mcg Tablet) 100 mcg PO DAILY [facility] Last Admin: 02/26/22 09:56 Dose: 100 mcg Vitamin E (Vitamin E (Dl,Tocopheryl Acet) 400 Unit Capsule) 800 unit PO DAILY [facility] Last Admin: 02/26/22 09:54 Dose: 800 unit Warfarin Sodium (Warfarin Per Pharmacy) 1 order PO DAILY@1400 [facility] Last Admin: 02/25/22 14:46 Dose: 1 order Warfarin Sodium (Warfarin 3 Mg Tablet) 6 mg PO ONCE@1400 [facility] Stop: 02/26/22 14:01 A/P Assessment and plan (1) Pneumonia: Status: Acute (2) Urinary tract infection: Status: Acute (3) Acute exacerbation of chronic obstructive pulmonary disease: Status: Acute (4) Hyperlipidemia: Status: Chronic Qualifiers: Hyperlipidemia type: mixed hyperlipidemia Qualified Code(s): E78.2 - Mixed hyperlipidemia (5) Hypothyroidism: Status: Chronic Qualifiers: Hypothyroidism type: acquired Qualified Code(s): E03.9 - Hypothyroidism, unspecified (6) Atrial fibrillation: Status: Chronic Qualifiers: Atrial fibrillation type: longstanding persistent Qualified Code(s): I48.11 - Longstanding persistent atrial fibrillation (7) Essential (primary) hypertension: Status: Acute (8) CHF (congestive heart failure): Status: Acute Narrative A/P Narrative: Assessment and Plans: 1. Pneumonia: Inpatient med surg Serial lactic acid 0.9 Procalcitonin 0.11 Blood culture, no growth to date [place] CoVID screening negative cbc w/ auto diff in the morning to trend WBC Supplemental oxygen therapy titrate to achieve spo2>=88% given COPD-er Levaquin (Penicillin allergy) 2. COPD with exacerbation: Supplemental oxygen therapy titrate to achieve spo2>=88% given COPD-er DuoNEB NEB scheduled and PRN wheezing Prednisone Levaquin (Penicillin allergy) 3. UTI: Serial lactic acid 0.9 Procalcitonin 0.11 Blood culture, no growth to date Urine culture, no growth to date cbc w/ auto diff in the morning to trend WBC Levaquin (Penicillin allergy) 4. h/o CHF and essential HTN: HCTZ Aldactone Losartan Nifedipine 5. Atrial fibrillation: Rate controlled Daily INR for Coumadin dosing 6. Hyperlipidemia: Continue statin therapy 7. Hypothyroidism: Continue thyroid replacement therapy GI ppx: not currently indicated DVT ppx: Coumadin Code statin: Full Prognosis: guarded Disposition: inpatient med surg Time Spent With Patient Time: Total time spent is greater than 50% in coordination of care (as documented) at patient's floor/unit and/or counseling patient: Total time spent with greater than 50% in coordination of care (as documented) at patient's floor/unit and/or counseling patient:: 25 - 35 minutes QUALITY VTE Deep Vein Thrombosis/Pulmonary Embolism Present on Admission: No
[2022-02-26] MEDS ORDERED: WARFARIN 3 MG TABLET PO ONE (14:00)
[2022-02-26] MEDS: NIFEdipine 30 MG TAB.XL.24H PO SCH (21:13)
[2022-02-26] MEDS: LACTOBACILLUS 1 CAPSULE PO SCH (21:14)
[2022-02-26] MEDS: SENNOSIDES 1 TABLET PO SCH (21:14)
[2022-02-27] MEDS: IPRATROPIUM/ALBUTEROL 3 ML AMPUL.NEB NEB SCH ×3 (02:41→10:35)
[2022-02-27] MEDS: 0.9 % SODIUM CHLORIDE 10 ML SYRINGE IV SCH (05:59)
[2022-02-27 07:22] LABS: Basophils # (Auto) 0.01 K/mcL (0.00-0.30); Basophils % (Auto) 0.1 % (0.0-2.0); Eosinophils # (Auto) 0 K/mcL (0.00-0.70); Eosinophils % (Auto) 0 % (0.0-7.0); Hematocrit 35.5 % (40.1-51.0); Hemoglobin 11.8 g/dL (13.7-17.5); Lymphocytes # (Auto) 2.21 K/mcL (1.50-4.80); Lymphocytes % (Auto) 18.1 % (15.5-49.0); Mean Cell Volume 90.6 fL (80.0-100.0); Mean Corpuscular HGB Conc 33.2 g/dL (31.0-36.0); Mean Platelet Volume 9.9 fL (8.8-12.5); Monocytes # (Auto) 0.69 K/mcL (0.10-0.90); Monocytes % (Auto) 5.6 % (1.0-12.0); Neutrophils % (Auto) 75.7 % (38.0-78.0); Platelet Count 153 K/mcL (140-440); RBC 3.92 M/mcL (4.63-6.08); Red Cell Distribution Width 12.5 % (11.5-14.5); WBC 12.2 K/mcL (4.5-11.0)
[2022-02-27 07:39] LABS: INR 4.1 (0.9-1.1); Prothrombin Time 40.7 sec (11.9-14.5)
[2022-02-27 08:25] LABS: ALT/SGPT 11 U/L (<40); AST/SGOT 15 U/L (<40); Albumin 3.4 gm/dL (3.2-5.2); Albumin/Globulin Ratio 1.3 (1.0-2.3); Alkaline Phosphatase 55 U/L (39-117); Bilirubin,Total 0.3 mg/dL (0.1-1.0); Blood Urea Nitrogen 18 mg/dL (8-23); Calcium 8.7 mg/dL (8.6-10.4); Carbon Dioxide 27 mmol/L (22-30); Chloride 101 mmol/L (96-108); Globulin 2.6 gm/dL (2.2-3.7); Glomerular Filtration Rate 80; Glucose 176 mg/dL (70-105)
[2022-02-27] MEDS: DOCUSATE SODIUM 100 MG CAPSULE PO SCH (08:45)
[2022-02-27] MEDS: HYDROCHLOROTHIAZIDE 25 MG TABLET PO SCH (08:45)
[2022-02-27] MEDS: predniSONE 20 MG TABLET PO SCH (08:45)
[2022-02-27] MEDS: LEVOTHYROXINE 125 MCG TABLET PO SCH (08:45)
[2022-02-27] MEDS: SPIRONOLACTONE 25 MG TABLET PO SCH (08:45)
[2022-02-27] MEDS: LOSARTAN 50 MG TABLET PO SCH (08:45)
[2022-02-27] MEDS: ATORVASTATIN 10 MG TABLET PO SCH (08:45)
[2022-02-27] MEDS: POTASSIUM CHLORIDE 10 MEQ TABLET PO SCH (08:46)
[2022-02-27] MEDS: LEVOFLOXACIN 750 MG/150 ML BAG IV SCH (10:33)
[2022-02-27] MEDS: FISH OIL 1,000 MG CAPSULE PO SCH (10:35)
[2022-02-27] MEDS: VITAMIN E (DL,TOCOPHERYL ACET) 400 UNIT CAPSULE PO SCH (10:35)
[2022-02-27] MEDS: VITAMIN B COMPLEX 1 CAPSULE PO SCH (10:35)
[2022-02-27] MEDS: MULTIVIT,THER IRON,CA,FA & MIN 1 TABLET PO SCH (10:35)
[2022-02-27] MEDS: VITAMIN D3 25 MCG TABLET PO SCH (10:36)
[2022-02-27] MEDS: MAGNESIUM OXIDE 400 MG TABLET PO SCH (10:36)
--- NOTE | 2022-02-27 11:17 | Discharge Summary ---
Discharge Provider Provider IMPORTANT FOLLOW-UP INFORMATION FOR PCP: Patient information: Note initiated : 02/27/22 at 11:15 am Service Date, if different from initiated Date: [] Patient: Doe Soler 86 y/o M admitted on 02/25/22 for Coughing Blood, Difficulty Breathing. Chief Complaint: [] Date of admission: 02/25/22 13:35 Discharge date: 02/27/22 Primary care physician: Dharmesh Boo MD Attending physician on admission: Jake Hutson Consults: 02/25/22 Consult to Physician [CONS] Stat Comment: Consulting Provider: Jake Hutson Reason For Exam: Physician to Consult Attending physician on discharge: Jake Hughes [place] COURSE Hospital Course Hospital course: Mr. Soler is a 86 year old M history of COPD, atrial fibrillation's on Coumadin, congestive heart failure, hypertensions, hyperlipidemia, hypothyroidism, presenting with shortness of breath and coughing up blood. He is complaining of shortness of breath over undefined amount of time as well as coughing up blood this morning. He is also commenting of productive cough with foamy sputum. He is coming of respiratory wheezings. He is coming of subjective fever and chills. He was having right-sided chest pain when coughing as well. Vital signs showing oxygen desaturating in the 80s on room air. Labs significant for leukocytosis with WBC 11.5. Lactic acid 0.9. INR was 2.0. [facility] COVID screening negative. UA suggesting the presence of urinary tract infections. Chest x-ray showing right lung infiltrates consistent with pneumonia as well as cardiomegaly unchanged. 02/26: [place] negative for COVID-pneumonia. Blood cultures no growth today. INR 2.5. Afebrile overnight. Patient is currently on 1 L/min of nasal cannula oxygen's. Patient is complaining of improving degree of shortness of breath. He is coming of productive cough with clear/red sputum. He is coming of respiratory wheezing. He denies any chest pain or chest tightness. He is coming of shaking chills but denies any fever or diaphoresis. Improving energy level. Continue to wean off oxygen as tolerated. Continue IV levofloxacin while monitoring blood culture results. Continue daily INR for Coumadin dosing. Continue bronchodilators and prednisone for COPD exacerbations. 02/27: Discharged home with family support. Rx sent to pharmacy. 2 week PCP follow up appointment made for him. All questions were answered prior to patient being physically discharged. Discharge diagnosis: Pnuemonia, COPD exacerbation Time Spent with Patient Time attestation: Total time spent providing and/or coordinating discharge services: Time spent: Greater than 30 minutes EXAM Constitutional Vitals: Temp Pulse Resp BP Pulse Ox O2 Del Method O2 Flow Rate 36.5 C 73 18 134/70 93 2 02/27/22 08:00 02/27/22 10:35 02/27/22 10:35 02/27/22 08:00 02/27/22 10:35 02/27/22 10:35 02/26/22 12:08 General appearance: cooperative and no acute distress Head Head exam: Present atraumatic and normocephalic Eye Eye exam: Present EOMI and PERRL ENT ENT exam: Present mucous membranes moist, normal exam and normal external ear exam Neck Neck exam: Present normal inspection; Absent lymphadenopathy, tenderness or thyromegaly Respiratory Respiratory exam: Absent accessory muscle use, respiratory distress or wheezes Cardiovascular Cardiovascular exam: Present irregular rhythm; Absent JVD GI/Abdominal GI/Abdominal exam: Present normal bowel sounds and soft; Absent organomegaly or tenderness Rectal Rectal exam: Present deferred Extremities Exam Extremities exam: Present full ROM, normal capillary refill and normal inspection; Absent tenderness Neurological Exam Neurological exam: Present alert, CN II-XII intact and oriented X3; Absent motor sensory deficit Psychiatric Psychiatric exam: Present normal affect and normal mood; Absent anxious or depressed Skin Skin exam: Present dry and intact Discharge Data Data Completed and Pending Labs on day of discharge: Labs from last 24 hours 02/27/22 02/27/22 02/27/22 05:27 05:27 05:27 WBC 12.2 H RBC 3.92 L Hgb 11.8 L Hct 35.5 L MCV 90.6 MCH 30.1 MCHC 33.2 RDW 12.5 Plt Count 153 MPV 9.9 Immature Gran % (Auto) 0.5 Neut % (Auto) 75.7 Lymph % (Auto) 18.1 [place] % (Auto) 5.6 Eos % (Auto) 0 Baso % (Auto) 0.1 Lymph # (Auto) 2.21 [place] # (Auto) 0.69 Eos # (Auto) 0 Baso # (Auto) 0.01 Immature Gran # 0.06 H Absolute Neutrophils 9.25 H PT 40.7 H INR 4.1 H Sodium 138 Potassium 3.9 Chloride 101 Carbon Dioxide 27 Anion Gap 10.0 BUN 18 Creatinine 0.8 GFR Calculation 80 Glucose 176 H Calcium 8.7 Total Bilirubin 0.3 AST 15 ALT 11 Alkaline Phosphatase 55 Total Protein 6.0 Albumin 3.4 Globulin 2.6 Albumin/Globulin Ratio 1.3 Preliminary micro results at discharge 02/25/22 10:22 Blood Culture - Preliminary Blood 02/25/22 10:12 Blood Culture - Preliminary Blood Discharge Plan Patient/Caregiver Discharge Instructions Activity: increase activity as tolerated Diet: Regular Diet Prescriptions: New prednisone 20 mg Tablet 40 mg PO QAMCC 2 Days Qty: 4 0RF levofloxacin 750 mg tablet 750 mg PO Q24H Qty: 4 0RF Continued warfarin 3 mg tablet See Rx Instructions .ROUTE .COMPLEX Qty: 330 4RF Rx Instructions: 3mg q am and 3mg q pm on Sat/Sat/Sat and 5mg q am and 3mg q pm on Sat///Sat albuterol sulfate [ProAir HFA] 90 mcg/actuation HFA aerosol inhaler 2 puff INHALATION QID Qty: 18 8RF spironolactone 25 mg tablet 25 mg PO DAILY Qty: 90 4RF atorvastatin 10 mg tablet 10 mg tablet 10 mg PO QDAY Qty: 90 4RF losartan 100 mg tablet 100 mg PO QDAY Qty: 90 4RF levothyroxine 125 mcg tablet 125 mcg PO DAILY Qty: 90 4RF hydrochlorothiazide 25 mg tablet 25 mg PO DAILY Qty: 90 4RF potassium chloride [Klor-Con 10] 10 mEq tablet extended release 10 meq PO BID vitamin E 1,000 UNIT capsule 1,000 unit PO DAILY magnesium oxide 500 MG capsule 500 mg PO DAILY [id number] acid 1 EACH tablet 1 each PO DAILY omega-3 fatty acids-vitamin E 1,000 mg Capsule 1,000 cap PO BID vitamin B complex Tablet 1 tab PO QHS ascorbate calcium (vitamin C) 500 mg Capsule 500 mg PO QAM cholecalciferol (vitamin D3) 100 mcg (4,000 unit) Capsule 100 mcg PO QAM nifedipine 60 mg tablet extended release 24hr 120 mg PO QHS warfarin 5 mg tablet See Rx Instructions .ROUTE .COMPLEX Rx Instructions: 5mg tab + 3mg tab = 8mg on SunT; lactobacillus combination no.8 3 billion cell Capsule 3 cell PO QHS Follow Up Plan Follow up with: Dharmesh Boo MD [Primary Care Provider] - Patient Disposition: Home, Self-Care Prognosis: Fair Rehab Potential: Good I certify that the patient requires SNF services: No Overall status at discharge: patient is back to baseline Discharge Orders: Discharge Order (Routine); Ordered 02/27/22 Ordered By: Jake VÁSQUEZ VTE Deep Vein Thrombosis/Pulmonary Embolism Present on Admission: No
[2022-02-27] MEDS: ASCORBIC ACID 500 MG TABLET PO SCH (14:20)
== END 2022-02-27 14:23 | disposition home or self-care (01) | DRG 190 ==
LOC: ED 07:55 → MEDSUR 13:35
PROVIDERS: ADMIT Internal Medicine; ATTEND Internal Medicine